=== PATIENT | male | born 1995 | race Caucasian/White ===

== ENCOUNTER 2016-12-21 14:29 | Inpatient (IN) | payer OTHER ==
[~2016-12-21] VITALS: Ht 188 cm; Wt 102.6 kg
[~2016-12-21 14:29] MED LIST: LORA.5 PO; MECL25 PO
[2016-12-21 14:33] VITALS: BP 158/80; PULSE 74; RESP 16; TEMP 98.5; O2SAT 100
[2016-12-21] MEDS ORDERED: SODIUM CHLORIDE 0.9% FLUSH 5 ML FLUSH IVF PRN (15:15)
[2016-12-21 15:24] VITALS: O2SAT 100
--- NOTE | 2016-12-21 15:34 | PD ---
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 Patient had similar symptoms when he was diagnosed on my had abnormal MRI and lumbar puncture and ruling out multiple sclerosis in January 2016. Patient has had intermittent spells of similar recurrent near syncopal episodes over the last year but has increased in frequency over the last 3-7 days. He describes these as a "drain" of energy throughout his body, mower frequent when he is standing and improves with rest that he has never had any episodes of true orthostatic vital signs. He does not have any associated chest pain shortness of breath or palpitations but does feel somewhat numb and tingly during these spells but not in between them. Patient is never completely unconscious and he is alert throughout these spells. No history of urinary or fecal incontinence associated with this. Patient has not had neurology follow-up in the last year due to lack of insurance. PFSH Past Medical History Hx Anticoagulant Therapy: No Anxiety: Yes (history) Depression: No Cancer: No Cardiovascular Problems: Yes (fast heart rate before feeling like passing out) Chemotherapy: No Diabetes: No Diminished Hearing: No Endocrine: No Genitourinary: No Immune Disorder: No Medical other: Yes (PKU) Musculoskeletal: No Neurologic: No Psychiatric: Yes Reproductive: No Respiratory: No Radiation Therapy: No Tetanus Vaccination: > 5 Years Influenza Vaccination: No Past Surgical History Other Surgery: No Social History Alcohol Use: Yes (seldom -mix drinks) Tobacco Use: No Substance Use: No Allergies-Medications (Allergen,Severity, Reaction): Coded Allergies: No Known Allergies (Verified , 12/21/16) Reported Meds & Prescriptions Reported Meds & Active Scripts Active No Active Prescriptions or Reported Medications Review of Systems Except as stated in HPI: all other systems reviewed are Neg Physical Exam Narrative GENERAL: Well-appearing male in no acute distress SKIN: Warm and dry. HEAD: Normocephalic. EYES: Pupils equal and round. No scleral icterus. No injection or drainage. ENT: No nasal bleeding or discharge. Mucous membranes pink and moist. NECK: Supple CARDIOVASCULAR: Regular rate and rhythm. No murmur appreciated. RESPIRATORY: No accessory muscle use. Clear to auscultation. Breath sounds equal bilaterally. GASTROINTESTINAL: Abdomen soft, non-tender, nondistended. MUSCULOSKELETAL: No obvious deformities. No edema. NEUROLOGICAL: Awake and alert. No obvious cranial nerve deficits. Motor grossly within normal limits. Normal speech. PSYCHIATRIC: Appropriate mood and affect; insight and judgment normal. Data Data Last Documented VS Vital Signs Date Time Temp Pulse Resp B/P Pulse Ox O2 Delivery O2 Flow Rate FiO2 12/21/16 15:24 100 Room Air 12/21/16 14:46 73 12/21/16 14:33 98.5 16 158/80 Orders Basic Metabolic Panel (Bmp) (12/21/16 15:15) Complete Blood Count With Diff (12/21/16 15:15) Iv Access Insert/Monitor (12/21/16 15:15) Ecg Monitoring (12/21/16 15:15) Oximetry (12/21/16 15:15) Sodium Chloride 0.9% Flush (Ns Flush) (12/21/16 15:15) Consult Neurology (12/21/16 ) Orthostatic Vital Signs (12/21/16 15:15) Mri Brain W&W/O Contrast (12/21/16 ) Methylprednisolone So Succ Inj (Solumedr (12/21/16 16:00) MDM Medical Decision Making Medical Screen Exam Complete: Yes Emergency Medical Condition: Yes Medical Record Reviewed: Yes Differential Diagnosis 21-year-old male with history of acute disseminated encephalomyelitis here with recurrent near syncopal episodes. Differential includes acute disseminated encephalomyelitis exacerbation, orthostasis, near syncope, electrolyte abnormality, symptomatic anemia. Narrative Course I spoke with Dr. Reza of neurology who agrees the patient may benefit from admission for high-dose steroids, repeat MRI. Recommends MRI with and without contrast, this was ordered. Also recommend Solu-Medrol 250 every 6 hours. This too was ordered. Basic labs were obtained and patient will be admitted, Dr. Garcia accepts admission. Diagnosis Primary Impression: ADEM (acute disseminated encephalomyelitis) Admitting Information Admitting Physician Requests: Admit Scripts No Active Prescriptions or Reported Meds Susan Soto MD Dec 21, 2016 15:34
[2016-12-21 15:46] VITALS: BP_SYST 140; BP_SYST 145; BP_SYST 164; BP_DIAS 66; BP_DIAS 78; BP_DIAS 86; RESP 14; RESP 17
[2016-12-21 15:49] LABS: AUTOMATED NEUTROPHIL # 6.7 TH/MM3 (1.8-7.7); BASOPHIL # 0.1 TH/MM3 (0-0.2); BASOPHIL % 0.8 % (0.0-2.0); EOSINOPHIL # 0.2 TH/MM3 (0-0.4); EOSINOPHIL % 2.2 % (0.0-4.0); HEMO FLAGS DIFF FINAL; LYMPH % 18.6 % (9.0-44.0); LYMPHOCYTE # 1.7 TH/MM3 (1.0-4.8); MEAN CELL VOLUME 90.5 FL (80.0-100.0); MEAN CORPUSCULAR HEMOGLOBIN 31.4 PG (27.0-34.0); MEAN CORPUSCULAR HGB CONC 34.7 % (32.0-36.0); MONO % 4.6 % (0.0-8.0); NEUT % 73.8 % (16.0-70.0); PLATELET COUNT 255 TH/MM3 (150-450); RED BLOOD COUNT 4.75 MIL/MM3 (4.50-5.90); RED CELL DISTRIBUTION WIDTH 11.9 % (11.6-17.2); WHITE BLOOD COUNT 9.1 TH/MM3 (4.0-11.0)
[2016-12-21] MEDS: methylPREDNISolone SOD SUCC 125 MG/2 ML VIAL IVP SCH ×2 (15:56→22:14)
[2016-12-21 15:57] LABS: POTASSIUM 3.6 MEQ/L (3.5-5.1)
[2016-12-21 16:00] LABS: BICARBONATE 26.7 MEQ/L (21.0-32.0)
[2016-12-21] MEDS: SODIUM CHLOR 0.9% 1000 ML INJ 1,000 ML IV SCH (16:21)
[2016-12-21] MEDS ORDERED: ACETAMINOPHEN 325 MG TAB PO PRN (16:30)
[2016-12-21] MEDS ORDERED: ONDANSETRON HCL 4 MG/2 ML VIAL IVP PRN (16:30)
[2016-12-21] MEDS ORDERED: NALOXONE HCL 0.4 MG/ML AMP IV PRN (16:30)
[2016-12-21 17:04] VITALS: BP 150/80; PULSE 77; RESP 21; TEMP 98; O2SAT 98
[2016-12-21] MEDS ORDERED: GADODIAMIDE PF 287 MG/ML 20 ML VIAL (for RAD MRI) IV ONE (17:53)
--- NOTE | 2016-12-21 18:25 | RADHPO ---
EXAM DATE/TIME: 12/21/2016 17:52 [facility] COMPARISON: MRI BRAIN W & W/O CONTRAST, January 25, 2016, 10:15. INDICATIONS : Encephalitis. Dizziness, weakness, near syncope. CONTRAST: 20 cc Omniscan (gadodiamide) IV MEDICAL HISTORY : Acute demyelinating emcephalomyelitis. SURGICAL HISTORY : None. ENCOUNTER: Initial ACUITY: 1 day PAIN SCORE: 0/10 LOCATION: cranial TECHNIQUE: Multiplanar, multisequence MRI of the brain was performed both prior to and following the administrat ion of paramagnetic contrast. FINDINGS: Comparison is January 2016. Again seen are T2 prolongation predominantly in the periventricular white m atter tracks diffusely and symmetrically. They do demonstrate some restriction in diffusion capacity. There is no associated hemorrhage, mass effect or shift in surface. No significant change since prio r study. There is involvement of the corpus callosum. CONCLUSION: 1. Stable bilateral periventricular white matter disease as above compared with January 2016. Different ial diagnosis previously given includes acute disseminated encephalomyelitis, hypoxic insult and othe r demyelinating processes. There is no abnormal enhancement post contrast. Earl Thompson MD on December 21, 2016 at 18:19 Board Certified Radiologist. This report was verified electronically.
[2016-12-21 20:00] VITALS: BP 142/73; PULSE 80; RESP 18; TEMP 97.9; O2SAT 98
[2016-12-21 20:09] VITALS: PULSE 86
[2016-12-21] MEDS: SODIUM CHLORIDE 0.9% FLUSH 5 ML FLUSH FLUSH SCH (21:00)
[2016-12-21] MEDS: ALPRAZolam 0.5 MG TAB PO PRN (22:15)
[2016-12-22] VITALS: BP 141/73; PULSE 65; RESP 18; TEMP 96.1; O2SAT 98
[2016-12-22] MEDS: SODIUM CHLOR 0.9% 1000 ML INJ 1,000 ML IV SCH ×3 (02:21→21:38)
[2016-12-22] MEDS: ALPRAZolam 0.5 MG TAB PO PRN ×4 (04:17→21:39)
[2016-12-22] MEDS: methylPREDNISolone SOD SUCC 125 MG/2 ML VIAL IVP SCH ×4 (04:17→21:40)
[2016-12-22 04:18] VITALS: BP 129/69; PULSE 65; RESP 18; TEMP 96.2; O2SAT 98
[2016-12-22 08:00] VITALS: BP 113/81; PULSE 72; PULSE 93; RESP 21; TEMP 97.7; O2SAT 99
--- NOTE | 2016-12-22 08:53 | MB ---
cc: ASHLYN ARTIS DATE OF CONSULTATION: 12/22/2016 REASON FOR CONSULTATION: ADDENDUM In addition, I would like to obtain an MRI of the cervical and thoracic spine to see if there is any evidence for any other demyelinating lesions in the cord. MD THIEN Addison/JACINTA /8:42 AM /8:52 AM
[2016-12-22] MEDS: SODIUM CHLORIDE 0.9% FLUSH 5 ML FLUSH FLUSH SCH ×2 (09:00→20:36)
--- NOTE | 2016-12-22 09:05 | MB ---
cc: ASHLYN ARTIS M.D. DATE OF CONSULTATION: 12/22/2016 REASON FOR CONSULTATION: Possible ADEM. HISTORY OF PRESENT ILLNESS Mr. Lisa is a 21-year-old white man who was in his usual health until about a year ago he started having episodes where he would feel lightheaded as well as vertiginous and dizzy with generalized weakness. He presented to the hospital and was found to have extensive white matter lesions on FLAIR an T2 images, mainly posteriorly on the MRI without contrast enhancement. At that time he also had lumbar puncture done and this is reviewed and it showed 1 WBC, 40% lymphs, 60% monos, 1 RBC, glucose 102, protein 55.6, myelin basic protein was negative. Cryptococcal antigen negative, VDRL nonreactive, angiotensin converting enzyme negative. He was treated with IV steroids with improvement, according to the record. Since then he has been having intermittent episodes about once a month where he feels unsteadiness of gait, generalized weakness. He has had double vision as well, coming and going. He feels overall that the symptoms have been less intense and lasting shorter periods of time until currently when he now reports an increased episode where he feels almost like he will pass out. He feels vertigo, ataxic with his gait and weakness for several days. Therefore, he presented to the emergency room. IV Solu-Medrol has been started. So far he has not noticed any significant improvement but he is early in the course. PAST MEDICAL HISTORY Otherwise unremarkable. MEDICATIONS Medications are: 1. Xanax p.r.n. for anxiety. 2. Zofran p.r.n. NEUROLOGIC EXAMINATION VITAL SIGNS: Blood pressure 113/81, pulse 72, respirations 21, temperature 97 degrees. Higher cortical functions are normal. Cranial nerves: The pupils are equal, reactive. The extraocular movements are normal. I do not see an DANIELA. There is no nystagmus. On motor examination he demonstrates 5/5 strength of all groups in both upper and lower extremities. There is no drift. Fine motor skills within normal limits. Reflexes are hyperreflexic in both upper and lower extremities. He has no Babinski sign present. There is no clonus. IMAGING STUDIES MRI of the brain shows periventricular white matter hyperintensity on FLAIR an T2 images, mainly posteriorly in the posterior parietal occipital area. This is unchanged from the previous study of January. There is no abnormal contrast enhancement. LABORATORY DATA The white count is 9100, hematocrit 43%, hemoglobin 14.9, platelet count 255,000. Sodium is 142, potassium 3.6, chloride 107, CO2 26.7, the BUN is 8, creatinine 0.82, GFR is 117, glucose 96. IMPRESSION It is possible that this could represent multiple sclerosis given the intermittent nature of his episodes with relapses in remission. ADEM would be in the differential but certainly his report of relapses would be more suggestive of MS. The normal CSF analysis last time does not rule out MS. RECOMMENDATIONS I would like to continue IV Solu-Medrol 250 mg q.6 hours for probably 3-5 days depending on his response. As an outpatient further evaluation could be obtained using visual and brainstem monitoring of potentials. I discussed repeating a lumbar puncture with the patient and he states he would rather hold off on this for the present time. In the future if there is still a possibility of MS we may consider immunomodulators such as, Gilenya, Aubagio or Tecfidera to see if this may modify his course. Thank you for asking me to see this pleasant patient. For completeness I would also like to get a sed rate, ALCIRA and Lyme PCR. MD THIEN Addison/NATHANAEL /8:38 AM /8:50 AM
--- NOTE | 2016-12-22 10:23 | MH ---
cc: NICOLAS ROSE MD DATE OF ADMISSION: 12/21/2016 CHIEF COMPLAINT Dizziness. HISTORY OF PRESENT ILLNESS This is a 21-year-old male with past medical-surgical history significant for acute disseminated encephalomyelitis diagnosed in January of 2016, history of anxiety and history of PKU, came to the ER at [facility] complaining of dizziness. He had the complaint of three recurrent episodes in January of 2016 and he was diagnosed with abnormal MRI and lumbar puncture and ruling out multiple sclerosis in January of 2016. The patient had intermittent spell of similar recurrent near syncopal episode over the last year but has increased in frequency over the last 3-7 days. He described these as a drain of energy throughout his body, when it gets worse with standing up and improved with rest. He never had any episode of ___ orthostatic vital signs, does not have any associated chest pain, shortness of breath, palpitation, but does feel somewhat numb and tingling during these spells but is not between them. The patient had never been completely unconscious, he is awake, alert, oriented x4 during the spell. No history of for urinary, fecal incontinence. He is not following a neurologist for the last 1 year because of lack of insurance and other than that nothing significant. PAST MEDICAL HISTORY AND PAST SURGICAL HISTORY As dictated above. SOCIAL HISTORY He seldom drinks alcohol. Denies any smoking or drug abuse. Lives at home. 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 ALLERGIES NO KNOWN DRUG ALLERGIES. MEDICATIONS None. REVIEW OF SYSTEMS Mild dizziness. All other review of systems are negative. PHYSICAL EXAMINATION GENERAL: A 21-year-old male sitting on the bed, not in acute distress. VITAL SIGNS: Temperature 97.7, heart rate 72, respiration 21, blood pressure 113/81, O2 saturation 99% on room air. HEENT: Normocephalic, atraumatic. EOMI. PERRL. Oral mucosa moist. NECK: Neck is supple. No visible thyromegaly or neck mass. Trachea central. CVS: Regular rate and rhythm. RESPIRATIONS: Clear to auscultation bilaterally. ABDOMEN: Soft, nontender. Bowel sounds audible. EXTREMITIES: No cyanosis or clubbing. Full range of motion of all extremities. NEUROLOGIC EXAMINATION: Higher cortical functions were intact. Cranial nerves are intact. Pupils equally reactive. Extraocular movements intact. No nystagmus. Motor system is normal. Fine motor skills are normal. Reflexes are hyperreflexic in both upper and lower extremities. No Babinski present. No clonus. PSYCHE: Mood and affect is normal. The patient is cooperative. SKIN: Warm and dry. LABORATORY DATA Includes CBC is totally unremarkable except for neut 73.8. BMP totally unremarkable. IMAGING STUDIES MRI of the brain was done and shows stable bilateral periventricular white matter disease as above in January 2016. Differential diagnosis previously given includes acute disseminated encephalomyelitis, hypoxic insult and other demyelinating process. No abnormal enhancement post contrast. ASSESSMENT/PLAN 1. 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 This could represent multiple sclerosis given the intermittent nature of the episode relapsing in remission, abnormal CSF analysis last time does not rule out MS. The patient was started on Solu-Medrol IV 250 mg q.6 hours for 3-5 days depending on response. Neurology has seen the patient, per neurology needs further outpatient evaluation, could be obtained using visual and brainstem monitoring of potentials. The patient refused lumbar puncture, neurology wanted to do that. Neurology thinks there is still a possibility of MS and they may consider immunomodulators. Checking sed rate, ALCIRA and Lyme PCR. 2. Anxiety. Continue home medication. 3. DVT prophylaxis with SCDs. 4. GI prophylaxis with Protonix 40 mg p.o. daily. 5. We are going to manage the patient on a daily basis and make recommendation on daily basis. Nicolas Rose MD EA/NATHANAEL /9:23 AM /9:45 AM
[2016-12-22 12:00] VITALS: BP 125/85; PULSE 79; RESP 18; TEMP 97.8; O2SAT 98
[2016-12-22] MEDS ORDERED: GADODIAMIDE PF 287 MG/ML 20 ML VIAL (for RAD MRI) IV ONE (15:37)
[2016-12-22 16:00] VITALS: BP 115/82; PULSE 80; RESP 19; TEMP 98; O2SAT 98
--- NOTE | 2016-12-22 16:26 | RADHPO ---
EXAM DATE/TIME: 12/22/2016 15:34 [facility] COMPARISON: No previous studies available for comparison. INDICATIONS : Mulitple sclerosis. CONTRAST: 20 cc Omniscan (gadodiamide) IV MEDICAL HISTORY : Acute demyelinating encephalomyelitis. SURGICAL HISTORY : None. ENCOUNTER: Initial ACUITY: 1 day PAIN SCORE: 0/10 LOCATION: TECHNIQUE: Multiplanar multisequence MRI of the thoracic spine was performed. FINDINGS: VERTEBRA: Normal vertebral body height. Homogeneous marrow signal. ALIGNMENT: Normal. CORD: Normal position and configuration. POST CONTRAST: No abnormal areas of contrast enhancement seen. T1-T2: Normal. T2-T3: The thecal sac has a normal diameter. No evidence of disc bulge or protrusion. T3-T4: The thecal sac has a normal diameter. No evidence of disc bulge or protrusion. T4-T5: The thecal sac has a normal diameter. No evidence of disc bulge or protrusion. T5-T6: The thecal sac has a normal diameter. No evidence of disc bulge or protrusion. T6-T7: The thecal sac has a normal diameter. No evidence of disc bulge or protrusion. T7-T8: There is a small right paracentral disc protrusion resulting in encroachment on the right lateral rec ess. T8-T9: There is a small left paracentral disc protrusion encroaching on the left lateral recess. T9-T10: The thecal sac has a normal diameter. No evidence of disc bulge or protrusion. T10-T11: The thecal sac has a normal diameter. No evidence of disc bulge or protrusion. T11-T12: The thecal sac has a normal diameter. No evidence of disc bulge or protrusion. T12-L1: The thecal sac has a normal diameter. No evidence of disc bulge or protrusion. CONCLUSION: 1. No focal cord signal abnormalities. No acute fracture or spondylolisthesis. No significant central canal stenosis. No abnormal enhancement post contrast. 2. Small right paracentral disc protrusion at T7-8 and a left paracentral disc protrusion at T8-9 res ulting in minimal encroachment on the lateral recesses. Earl Thompson MD on December 22, 2016 at 16:19 Board Certified Radiologist. This report was verified electronically.
--- NOTE | 2016-12-22 16:28 | RADHPO ---
EXAM DATE/TIME: 12/22/2016 15:34 [facility] COMPARISON: No previous studies available for comparison. INDICATIONS : Mulitple sclerosis. CONTRAST: 20 cc Omniscan (gadodiamide) IV MEDICAL HISTORY : Acute demyelenating emcephalomyelitis. SURGICAL HISTORY : None. ENCOUNTER: Initial ACUITY: 1 day PAIN SCORE: 0/10 LOCATION: neck TECHNIQUE: Multiplanar, multisequence MRI examination of the cervical spine was performed. FINDINGS: VERTEBRAE: Normal vertebral body height. Homogeneous marrow signal. ALIGNMENT: No evidence of subluxation. CORD: Normal configuration and signal. POST FOSSA: The cerebellar tonsils are normal in position. POST-CONTRAST: No abnormal areas of enhancement are seen. C2-C3: The thecal sac has a normal configuration. There is no evidence of disc herniation or spinal canal stenosis. The neural foramina are patent bilaterally. C3-C4: The thecal sac has a normal configuration. There is no evidence of disc herniation or spinal canal s tenosis. The neural foramina are patent bilaterally. C4-C5: The thecal sac has a normal configuration. There is no evidence of disc herniation or spinal canal s tenosis. The neural foramina are patent bilaterally. C5-C6: The thecal sac has a normal configuration. There is no evidence of disc herniation or spinal canal s tenosis. The neural foramina are patent bilaterally. C6-C7: Broad-based disc bulge present at this level without significant canal or foraminal stenosis. C7-T1: The thecal sac has a normal configuration. There is no evidence of disc herniation or spinal canal s tenosis. The neural foramina are patent bilaterally. CONCLUSION: 1. At C6-7 there is a mild posterior disc bulge without significant canal or foraminal stenosis. Exam otherwise unremarkable. No focal cord signal abnormalities. No abnormal enhancement post contrast. Earl Thompson MD on December 22, 2016 at 16:24 Board Certified Radiologist. This report was verified electronically.
[2016-12-22 20:00] VITALS: BP 135/72; PULSE 95; PULSE 98; RESP 20; TEMP 98.1; O2SAT 99
[2016-12-22] MEDS: SODIUM CHLORIDE 0.9% FLUSH 5 ML FLUSH FLUSH PRN (21:40)
[2016-12-23] VITALS: BP 134/63; PULSE 84; RESP 20; TEMP 98.1; O2SAT 98
[2016-12-23 04:00] VITALS: BP 126/63; PULSE 76; RESP 20; TEMP 97.7; O2SAT 98
[2016-12-23] MEDS: methylPREDNISolone SOD SUCC 125 MG/2 ML VIAL IVP SCH ×4 (04:03→22:27)
[2016-12-23] MEDS: SODIUM CHLORIDE 0.9% FLUSH 5 ML FLUSH FLUSH PRN (04:03)
[2016-12-23] MEDS: ALPRAZolam 0.5 MG TAB PO PRN ×4 (04:03→22:30)
[2016-12-23 06:42] LABS: AUTOMATED NEUTROPHIL # 24.9 TH/MM3 (1.8-7.7); BASOPHIL # 0.5 TH/MM3 (0-0.2); BASOPHIL % 1.7 % (0.0-2.0); HEMATOCRIT 42.3 % (39.0-51.0); LYMPH % 3.3 % (9.0-44.0); LYMPHOCYTE # 0.9 TH/MM3 (1.0-4.8); MEAN CORPUSCULAR HEMOGLOBIN 31.5 PG (27.0-34.0); MEAN CORPUSCULAR HGB CONC 34.6 % (32.0-36.0); MONO % 1.7 % (0.0-8.0); NEUT % 93.3 % (16.0-70.0); PLATELET COUNT 295 TH/MM3 (150-450); RED BLOOD COUNT 4.64 MIL/MM3 (4.50-5.90); WHITE BLOOD COUNT 26.8 TH/MM3 (4.0-11.0)
[2016-12-23 06:47] LABS: HEMO FLAGS AUTO DIFF
[2016-12-23 06:48] LABS: CHLORIDE 109 MEQ/L (98-107); SODIUM (NA) 144 MEQ/L (136-145)
[2016-12-23 06:56] LABS: ANION GAP 12 MEQ/L (5-15); BICARBONATE 23.1 MEQ/L (21.0-32.0); BLOOD UREA NITROGEN 15 MG/DL (7-18)
[2016-12-23 06:58] LABS: ALT (GPT) 17 U/L (12-78)
[2016-12-23 06:59] LABS: AST (GOT) 6 U/L (15-37); GLOMERULAR FILTRATION RATE 123 ML/MIN (>89)
[2016-12-23 07:00] LABS: TOTAL BILIRUBIN ADULT 0.3 MG/DL (0.2-1.0)
[2016-12-23 07:01] LABS: ALKALINE PHOSPHATASE 66 U/L (45-117)
[2016-12-23 07:21] LABS: BANDS 6 % (0-6); NEUTROPHIL # MANUAL DIFF 25.5 TH/MM3 (1.8-7.7); POLYS (SEG NEUTROPHILS) 89 % (16-70); WBC DIFF SAMPLE 100
[2016-12-23 07:22] LABS: PLATELET ESTIMATE SMEAR NORMAL (NORMAL); PLATELET MORPHOLOGY NORMAL (NORMAL); SCAN/DIFF FINAL DIFF MANUAL
[2016-12-23 08:00] VITALS: BP 110/53; PULSE 89; RESP 16; TEMP 98.3; O2SAT 97
[2016-12-23] MEDS: SODIUM CHLOR 0.9% 1000 ML INJ 1,000 ML IV SCH ×2 (08:21→18:21)
--- NOTE | 2016-12-23 08:36 | HHI.PR ---
Subjective History of Present Illness Patient deny any complaints no acute issue d/w RN Teresa at bed side. High WBC Count secondary to steroids. Review of Systems Constitutional Constitutional: Fatigue Vitals/Results Intake & Output 12/22/16 12/22/16 12/23/16 15:00 23:00 07:00 Intake Total 800 ml 120 ml Balance 800 ml 120 ml Intake Oral 800 ml 120 ml # Voids 1 0 # Bowel Movements 0 0 Vital Signs Vital Signs Date Time Temp Pulse Resp B/P Pulse Ox O2 Delivery O2 Flow Rate FiO2 12/23/16 04:00 97.7 76 20 126/63 98 12/23/16 00:00 98.1 84 20 134/63 98 12/22/16 20:00 98 12/22/16 20:00 98.1 95 20 135/72 99 12/22/16 16:00 98.0 80 19 115/82 98 12/22/16 12:00 97.8 79 18 125/85 98 CBC/BMP: 12/23/16 0615 12/23/16 0615 Lab Results Laboratory Tests Test 12/22/16 12/23/16 09:45 06:15 Erythrocyte Sedimentation Rate 2 mm/hr Vitamin B12 Level 700 PG/ML White Blood Count 26.8 TH/MM3 Red Blood Count 4.64 MIL/MM3 Hemoglobin 14.6 GM/DL Hematocrit 42.3 % Mean Corpuscular Volume 91.0 FL Mean Corpuscular Hemoglobin 31.5 PG Mean Corpuscular Hemoglobin 34.6 % Concent Red Cell Distribution Width 12.0 % Platelet Count 295 TH/MM3 Mean Platelet Volume 8.7 FL Neutrophils (%) (Auto) 93.3 % Lymphocytes (%) (Auto) 3.3 % Monocytes (%) (Auto) 1.7 % Eosinophils (%) (Auto) 0.0 % Basophils (%) (Auto) 1.7 % Neutrophils # (Auto) 24.9 TH/MM3 Lymphocytes # (Auto) 0.9 TH/MM3 Monocytes # (Auto) 0.5 TH/MM3 Eosinophils # (Auto) 0.0 TH/MM3 Basophils # (Auto) 0.5 TH/MM3 CBC Comment AUTO DIFF Differential Total Cells 100 Counted Neutrophils % (Manual) 89 % Band Neutrophils % 6 % Lymphocytes % 4 % Monocytes % 1 % Neutrophils # (Manual) 25.5 TH/MM3 Differential Comment FINAL DIFF MANUAL Platelet Estimate NORMAL Platelet Morphology Comment NORMAL Red Cell Morphology Comment NORMAL Sodium Level 144 MEQ/L Potassium Level 4.0 MEQ/L Chloride Level 109 MEQ/L Carbon Dioxide Level 23.1 MEQ/L Anion Gap 12 MEQ/L Blood Urea Nitrogen 15 MG/DL Creatinine 0.79 MG/DL Estimat Glomerular Filtration 123 ML/MIN Rate Random Glucose 156 MG/DL Calcium Level 9.1 MG/DL Total Bilirubin 0.3 MG/DL Aspartate Amino Transf 6 U/L (AST/SGOT) Alanine Aminotransferase 17 U/L (ALT/SGPT) Alkaline Phosphatase 66 U/L Total Protein 6.7 GM/DL Albumin 3.9 GM/DL Physical Exam General General Appearance: No Acute Distress, Comfortable Eyes Eye Exam: Pupils Equal, Pupils Reactive, Sclera White, Extraocular Movement Intact Throat Throat Exam: Oral Mucosa [place] & Moist, Oral Pharynx Normal Neck Neck Exam: Neck Supple, Trachea Midline Pulmonary Resp Exam: Clear Bilaterally, Breath Sounds Equal, No Distress Cardiology CV Exam: Regular, Normal Sinus Rhythm Gastrointestinal/Abdomen GI Exam: Soft, Non-Tender, Bowel Sounds Present Musculoskeletal MS Exam: Joints Intact, Normal Tone Integumentary Skin Exam: Clear, Warm, Dry, Intact Extremeties Extremities Exam: No Edema Neurologic Neuro Exam: Alert, Awake, Oriented, Speech Clear, No Focal Deficits Psychiatric Psych Exam: Appropriate Responses PUD Prophylasis PUD Prophylaxis: Protonix Assessment/Plan Assessment/Plan ASSESSMENT/PLAN 1. 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 This could represent multiple sclerosis given the intermittent nature of the episode relapsing in remission, abnormal CSF analysis last time does not rule out MS. The patient was started on Solu-Medrol IV 250 mg q.6 hours for 3-5 days depending on response. Neurology has seen the patient, per neurology needs further outpatient evaluation, could be obtained using visual and brainstem monitoring of potentials. The patient refused lumbar puncture, neurology wanted to do that. Neurology thinks there is still a possibility of MS and they may consider immunomodulators. Checked sed rate, and Lyme PCR...ALCIRA negative MRI of Brain and MRI of Cervical and Thoracic spine..nothing acute. 2. Anxiety. Continue home medication. 3. DVT prophylaxis with SCDs. 4. GI prophylaxis with Protonix 40 mg p.o. daily. 5. High WBC Count secondary to steroids. We are going to manage the patient on a daily basis and make recommendation on daily basis. Check CBC with diff CMP in AM. Discussed Condition with: Patient Damian Jay MD Dec 23, 2016 08:36
[2016-12-23] MEDS: SODIUM CHLORIDE 0.9% FLUSH 5 ML FLUSH FLUSH SCH ×2 (10:03→22:27)
[2016-12-23 12:00] VITALS: BP 135/69; PULSE 89; RESP 16; TEMP 98.3; O2SAT 98
[2016-12-23 15:27] VITALS: BP 121/65; PULSE 97; RESP 16; TEMP 98.3; O2SAT 98
--- NOTE | 2016-12-23 19:57 | HHI.PR ---
Review/Management Diagnosis ADEM vs MS Plan continue iv steroids 2 more days--through Friday evening Diagnosis/Plan: Subjective Subjective Comments No acute events reported No headache So far notices no improvement in sx Active Medications Current Medications Medications (Trade) Dose Ordered Sig/Nanci Route Start Time Stop Time Status Last Admin Methylprednisolone Sodium Succinate 250 mg 250 mg Q6H IVP 12/21/16 16:00 12/23/16 17:37 (NS 1000 ml Inj) 1,000 ml @ 100 mls/hr Q10H IV 12/21/16 16:21 (NS Flush) 2 ml UNSCH PRN FLUSH 12/21/16 16:30 12/23/16 04:03 (NS Flush) 2 ml BID FLUSH 12/21/16 21:00 12/23/16 10:03 (Tylenol) 650 mg Q4H PRN PO 12/21/16 16:30 (Zofran Inj) 4 mg Q6H PRN IVP 12/21/16 16:30 (Narcan Inj) 0.4 mg UNSCH PRN IV 12/21/16 16:30 (Xanax) 0.5 mg Q6H PRN PO 12/21/16 19:00 12/23/16 17:37 Allergies Allergies Coded Allergies No Known Allergies (Verified12/21/16) Review of Systems All other ROS: ROS reviewed as documented in chart Exam I&O / VS 12/22/16 12/22/16 12/23/16 15:00 23:00 07:00 Intake Total 800 ml 120 ml Balance 800 ml 120 ml Intake Oral 800 ml 120 ml # Voids 1 0 # Bowel Movements 0 0 Vital Signs Date Time Temp Pulse Resp B/P Pulse Ox O2 Delivery O2 Flow Rate FiO2 12/23/16 15:27 98.3 97 16 121/65 98 12/23/16 12:00 98.3 89 16 135/69 98 12/23/16 08:00 98.3 89 16 110/53 97 12/23/16 04:00 97.7 76 20 126/63 98 12/23/16 00:00 98.1 84 20 134/63 98 12/22/16 20:00 98 12/22/16 20:00 98.1 95 20 135/72 99 General: Alert and Oriented, No acute distress Eye: EOMI Respiratory: Non-labored respirations Cardiology: Normal rate Musculoskeletal: ROM Neurologic: Alert, Oriented, Normal sensory, Normal motor, No focal defects, CN II-XII intact, Normal DTR's Psychiatric: Cooperative, Appropriate mood & affect, Normal judgement Exam Comments alert, oriented, speech normal CN normal Motor normal strength gait normal Objective Radiology Results MRI cervical and thoracic spine--no intramedullary areas of demyelination Micro and Labs Laboratory Tests Test 12/23/16 06:15 White Blood Count 26.8 Red Blood Count 4.64 Hemoglobin 14.6 Hematocrit 42.3 Mean Corpuscular Volume 91.0 Mean Corpuscular Hemoglobin 31.5 Mean Corpuscular Hemoglobin 34.6 Concent Red Cell Distribution Width 12.0 Platelet Count 295 Mean Platelet Volume 8.7 Neutrophils (%) (Auto) 93.3 Lymphocytes (%) (Auto) 3.3 Monocytes (%) (Auto) 1.7 Eosinophils (%) (Auto) 0.0 Basophils (%) (Auto) 1.7 Neutrophils # (Auto) 24.9 Lymphocytes # (Auto) 0.9 Monocytes # (Auto) 0.5 Eosinophils # (Auto) 0.0 Basophils # (Auto) 0.5 CBC Comment AUTO DIFF Differential Total Cells 100 Counted Neutrophils % (Manual) 89 Band Neutrophils % 6 Lymphocytes % 4 Monocytes % 1 Neutrophils # (Manual) 25.5 Differential Comment FINAL DIFF MANUAL Platelet Estimate NORMAL Platelet Morphology Comment NORMAL Red Cell Morphology Comment NORMAL Sodium Level 144 Potassium Level 4.0 Chloride Level 109 Carbon Dioxide Level 23.1 Anion Gap 12 Blood Urea Nitrogen 15 Creatinine 0.79 Estimat Glomerular Filtration 123 Rate Random Glucose 156 Calcium Level 9.1 Total Bilirubin 0.3 Aspartate Amino Transf 6 (AST/SGOT) Alanine Aminotransferase 17 (ALT/SGPT) Alkaline Phosphatase 66 Total Protein 6.7 Albumin 3.9 Devin Reza PhD Dec 23, 2016 19:57
[2016-12-23 20:00] VITALS: BP 129/74; PULSE 106; PULSE 72; RESP 18; TEMP 96.7; O2SAT 98
[2016-12-24] VITALS: BP 138/72; PULSE 70; RESP 18; TEMP 97.7; O2SAT 98
[2016-12-24 04:00] VITALS: BP 106/59; PULSE 67; RESP 17; TEMP 97; O2SAT 97
[2016-12-24] MEDS: ALPRAZolam 0.5 MG TAB PO PRN ×4 (04:16→22:21)
[2016-12-24] MEDS: methylPREDNISolone SOD SUCC 125 MG/2 ML VIAL IVP SCH ×4 (04:17→21:45)
[2016-12-24] MEDS: SODIUM CHLOR 0.9% 1000 ML INJ 1,000 ML IV SCH ×2 (04:17→14:16)
[2016-12-24 07:55] VITALS: BP 143/91; PULSE 85; RESP 20; TEMP 97.8; O2SAT 97
--- NOTE | 2016-12-24 08:17 | HHI.PR ---
Subjective History of Present Illness Patient deny any complaints no acute issue d/w RN Nay. High WBC Count secondary to steroids...wants some thin for haert burn started on protonix PO, Review of Systems Constitutional Constitutional: Fatigue GI/Abdomen GI/Abdominal Exam: Heartburn Vitals/Results Intake & Output 12/23/16 12/23/16 12/24/16 15:00 23:00 07:00 Intake Total 720 ml 510 ml Balance 720 ml 510 ml Intake Oral 720 ml 510 ml # Voids 3 8 # Bowel Movements 1 Vital Signs Vital Signs Date Time Temp Pulse Resp B/P Pulse Ox O2 Delivery O2 Flow Rate FiO2 12/24/16 07:55 97.8 85 20 143/91 97 12/24/16 04:00 97.0 67 17 106/59 97 12/24/16 00:00 97.7 70 18 138/72 98 12/23/16 20:00 106 12/23/16 20:00 96.7 72 18 129/74 98 12/23/16 15:27 98.3 97 16 121/65 98 12/23/16 12:00 98.3 89 16 135/69 98 CBC/BMP: 12/23/16 0615 12/23/16 0615 Physical Exam General General Appearance: No Acute Distress, Comfortable Eyes Eye Exam: Pupils Equal, Pupils Reactive, Sclera White, Extraocular Movement Intact Throat Throat Exam: Oral Mucosa [place] & Moist, Oral Pharynx Normal Neck Neck Exam: Neck Supple, Trachea Midline Pulmonary Resp Exam: Clear Bilaterally, Breath Sounds Equal, No Distress Cardiology CV Exam: Regular, Normal Sinus Rhythm Gastrointestinal/Abdomen GI Exam: Soft, Non-Tender, Bowel Sounds Present Musculoskeletal MS Exam: Joints Intact, Normal Tone Integumentary Skin Exam: Clear, Warm, Dry, Intact Extremeties Extremities Exam: No Edema Neurologic Neuro Exam: Alert, Awake, Oriented, Speech Clear, No Focal Deficits Psychiatric Psych Exam: Appropriate Responses PUD Prophylasis PUD Prophylaxis: Protonix Assessment/Plan Assessment/Plan ASSESSMENT/PLAN 1. 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 This could represent multiple sclerosis given the intermittent nature of the episode relapsing in remission, abnormal CSF analysis last time does not rule out MS. The patient was started on Solu-Medrol IV 250 mg q.6 hours for 3-5 days depending on response. Neurology has seen the patient, per neurology needs further outpatient evaluation, could be obtained using visual and brainstem monitoring of potentials. The patient refused lumbar puncture, neurology wanted to do that. Neurology thinks there is still a possibility of MS and they may consider immunomodulators. Checked sed rate, and Lyme PCR...ALCIRA negative MRI of Brain and MRI of Cervical and Thoracic spine..nothing acute. 2. Anxiety. Continue home medication. 3. DVT prophylaxis with SCDs. 4. GI prophylaxis with Protonix 40 mg p.o. daily. 5. High WBC Count secondary to steroids. We are going to manage the patient on a daily basis and make recommendation on daily basis. Check CBC with diff CMP in AM. Discussed Condition with: Patient Damian Jay MD Dec 24, 2016 08:17
[2016-12-24] MEDS: SODIUM CHLORIDE 0.9% FLUSH 5 ML FLUSH FLUSH SCH ×2 (09:56→21:45)
[2016-12-24] MEDS: PANTOPRAZOLE SOD 40 MG DELAYED RELEASE TAB PO SCH (09:56)
[2016-12-24 12:00] VITALS: BP 138/74; PULSE 72; RESP 20; TEMP 97.5; O2SAT 97
[2016-12-24 16:00] VITALS: BP 129/78; PULSE 79; RESP 20; TEMP 98.1; O2SAT 98
[2016-12-24 20:00] VITALS: BP 146/86; PULSE 80; PULSE 88; RESP 18; TEMP 97.2; O2SAT 99
[2016-12-25] VITALS: BP 142/69; PULSE 82; RESP 18; TEMP 96.8; O2SAT 98
[2016-12-25] MEDS: SODIUM CHLOR 0.9% 1000 ML INJ 1,000 ML IV SCH ×3 (00:21→19:37)
[2016-12-25 04:00] VITALS: BP 112/65; PULSE 54; RESP 18; TEMP 97.1; O2SAT 98
[2016-12-25] MEDS: ALPRAZolam 0.5 MG TAB PO PRN ×3 (04:11→16:13)
[2016-12-25] MEDS: methylPREDNISolone SOD SUCC 125 MG/2 ML VIAL IVP SCH ×3 (04:11→16:08)
[2016-12-25 06:26] LABS: AUTOMATED NEUTROPHIL # 14.4 TH/MM3 (1.8-7.7); BASOPHIL % 0.1 % (0.0-2.0); HEMATOCRIT 38.8 % (39.0-51.0); LYMPHOCYTE # 0.6 TH/MM3 (1.0-4.8); MEAN CORPUSCULAR HEMOGLOBIN 31.8 PG (27.0-34.0); MEAN CORPUSCULAR HGB CONC 35.4 % (32.0-36.0); MONO % 2.3 % (0.0-8.0); NEUT % 93.6 % (16.0-70.0); PLATELET COUNT 226 TH/MM3 (150-450); RED BLOOD COUNT 4.32 MIL/MM3 (4.50-5.90); RED CELL DISTRIBUTION WIDTH 11.6 % (11.6-17.2); WHITE BLOOD COUNT 15.4 TH/MM3 (4.0-11.0)
[2016-12-25 06:29] LABS: HEMO FLAGS DIFF FINAL
[2016-12-25 06:43] LABS: CHLORIDE 106 MEQ/L (98-107); POTASSIUM 3.6 MEQ/L (3.5-5.1); SODIUM (NA) 142 MEQ/L (136-145)
[2016-12-25 06:59] LABS: ALKALINE PHOSPHATASE 57 U/L (45-117); ALT (GPT) 17 U/L (12-78); ANION GAP 10 MEQ/L (5-15); AST (GOT) 3 U/L (15-37); BICARBONATE 26.3 MEQ/L (21.0-32.0); BLOOD UREA NITROGEN 16 MG/DL (7-18); GLOMERULAR FILTRATION RATE 126 ML/MIN (>89); TOTAL BILIRUBIN ADULT 0.5 MG/DL (0.2-1.0)
[2016-12-25 08:00] VITALS: BP 146/76; PULSE 77; RESP 16; TEMP 97.8; O2SAT 98
--- NOTE | 2016-12-25 08:19 | HHI.PR ---
Subjective History of Present Illness Patient deny any complaints no acute issue d/w RN High WBC Count secondary to steroids.. c/o hiccough started on chlorpromazine. Review of Systems Constitutional Constitutional: Fatigue GI/Abdomen GI/Abdominal Exam: Heartburn Vitals/Results Intake & Output 12/24/16 12/24/16 12/25/16 15:00 23:00 07:00 Intake Total 450 ml 360 ml Balance 450 ml 360 ml Intake Oral 450 ml 360 ml # Voids 3 13 # Bowel Movements 0 Vital Signs Vital Signs Date Time Temp Pulse Resp B/P Pulse Ox O2 Delivery O2 Flow Rate FiO2 12/25/16 04:00 97.1 54 18 112/65 98 12/25/16 00:00 96.8 82 18 142/69 98 12/24/16 20:00 97.2 88 18 146/86 99 12/24/16 20:00 80 12/24/16 16:00 98.1 79 20 129/78 98 12/24/16 12:00 97.5 72 20 138/74 97 CBC/BMP: 12/25/16 0550 12/25/16 0550 Lab Results Laboratory Tests Test 12/25/16 05:50 White Blood Count 15.4 TH/MM3 Red Blood Count 4.32 MIL/MM3 Hemoglobin 13.7 GM/DL Hematocrit 38.8 % Mean Corpuscular Volume 90.0 FL Mean Corpuscular Hemoglobin 31.8 PG Mean Corpuscular Hemoglobin 35.4 % Concent Red Cell Distribution Width 11.6 % Platelet Count 226 TH/MM3 Mean Platelet Volume 8.7 FL Neutrophils (%) (Auto) 93.6 % Lymphocytes (%) (Auto) 4.0 % Monocytes (%) (Auto) 2.3 % Eosinophils (%) (Auto) 0.0 % Basophils (%) (Auto) 0.1 % Neutrophils # (Auto) 14.4 TH/MM3 Lymphocytes # (Auto) 0.6 TH/MM3 Monocytes # (Auto) 0.4 TH/MM3 Eosinophils # (Auto) 0.0 TH/MM3 Basophils # (Auto) 0.0 TH/MM3 CBC Comment DIFF FINAL Differential Comment Sodium Level 142 MEQ/L Potassium Level 3.6 MEQ/L Chloride Level 106 MEQ/L Carbon Dioxide Level 26.3 MEQ/L Anion Gap 10 MEQ/L Blood Urea Nitrogen 16 MG/DL Creatinine 0.77 MG/DL Estimat Glomerular Filtration 126 ML/MIN Rate Random Glucose 128 MG/DL Calcium Level 8.7 MG/DL Total Bilirubin 0.5 MG/DL Aspartate Amino Transf 3 U/L (AST/SGOT) Alanine Aminotransferase 17 U/L (ALT/SGPT) Alkaline Phosphatase 57 U/L Total Protein 6.0 GM/DL Albumin 3.3 GM/DL Physical Exam General General Appearance: No Acute Distress, Comfortable Eyes Eye Exam: Pupils Equal, Pupils Reactive, Sclera White, Extraocular Movement Intact Throat Throat Exam: Oral Mucosa [place] & Moist, Oral Pharynx Normal Neck Neck Exam: Neck Supple, Trachea Midline Pulmonary Resp Exam: Clear Bilaterally, Breath Sounds Equal, No Distress Cardiology CV Exam: Regular, Normal Sinus Rhythm Gastrointestinal/Abdomen GI Exam: Soft, Non-Tender, Bowel Sounds Present Musculoskeletal MS Exam: Joints Intact, Normal Tone Integumentary Skin Exam: Clear, Warm, Dry, Intact Extremeties Extremities Exam: No Edema Neurologic Neuro Exam: Alert, Awake, Oriented, Speech Clear, No Focal Deficits Psychiatric Psych Exam: Appropriate Responses PUD Prophylasis PUD Prophylaxis: Protonix Assessment/Plan Assessment/Plan ASSESSMENT/PLAN 1. 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 This could represent multiple sclerosis given the intermittent nature of the episode relapsing in remission, abnormal CSF analysis last time does not rule out MS. The patient was started on Solu-Medrol IV 250 mg q.6 hours for 3-5 days depending on response. Neurology has seen the patient, per neurology needs further outpatient evaluation, could be obtained using visual and brainstem monitoring of potentials. The patient refused lumbar puncture, neurology wanted to do that. Neurology thinks there is still a possibility of MS and they may consider immunomodulators. Checked sed rate, and Lyme PCR...ALCIRA negative MRI of Brain and MRI of Cervical and Thoracic spine..nothing acute. 2. Anxiety. Continue home medication. 3. DVT prophylaxis with SCDs. 4. GI prophylaxis with Protonix 40 mg p.o. daily. 5. High WBC Count secondary to steroids. 6.Hiccough started on chlorpromazine. DC Plan possible tomorrow. We are going to manage the patient on a daily basis and make recommendation on daily basis. Check CBC with diff CMP in AM. Discussed Condition with: Patient Damian Jay MD Dec 25, 2016 08:19
[2016-12-25] MEDS: PANTOPRAZOLE SOD 40 MG DELAYED RELEASE TAB PO SCH (08:23)
[2016-12-25] MEDS: SODIUM CHLORIDE 0.9% FLUSH 5 ML FLUSH FLUSH SCH ×2 (08:24→20:10)
[2016-12-25] MEDS: chlorproMAZINE HCL 25 MG TAB PO PRN ×2 (10:29→17:30)
[2016-12-25 12:00] VITALS: BP 146/76; PULSE 77; RESP 18; TEMP 97.3; O2SAT 98
[2016-12-25 16:00] VITALS: BP 150/71; PULSE 88; RESP 18; TEMP 97.8; O2SAT 98
--- NOTE | 2016-12-25 19:15 | HHI.PR ---
Review/Management Diagnosis ADEM vs MS Plan stop iv steroids repeat MRI brain If MRI brain is stable ok from neuro standpoint to discharge home tomorrow and follow up with me in office in 2-3 weeks I would not recommend other therapies such as plasmapheresis, cytoxan, etc due to potential for side effects and exam with no definitive findings Diagnosis/Plan: Subjective Subjective Comments patient reports he feels his balance is worse and not improved with solumedrol Active Medications Current Medications Medications (Trade) Dose Ordered Sig/Nanci Route Start Time Stop Time Status Last Admin Methylprednisolone Sodium Succinate 250 mg 250 mg Q6H IVP 12/21/16 16:00 12/25/16 16:08 (NS 1000 ml Inj) 1,000 ml @ 100 mls/hr Q10H IV 12/21/16 16:21 (NS Flush) 2 ml UNSCH PRN FLUSH 12/21/16 16:30 12/23/16 04:03 (NS Flush) 2 ml BID FLUSH 12/21/16 21:00 12/25/16 08:24 (Tylenol) 650 mg Q4H PRN PO 12/21/16 16:30 (Zofran Inj) 4 mg Q6H PRN IVP 12/21/16 16:30 (Narcan Inj) 0.4 mg UNSCH PRN IV 12/21/16 16:30 (Xanax) 0.5 mg Q6H PRN PO 12/21/16 19:00 12/25/16 16:13 (Protonix) 40 mg DAILY PO 12/24/16 09:00 12/25/16 08:23 (Thorazine) 25 mg Q6H PRN PO 12/25/16 09:00 12/25/16 17:30 Allergies Allergies Coded Allergies No Known Allergies (Verified12/21/16) Review of Systems All other ROS: ROS reviewed as documented in chart Exam I&O / VS 12/24/16 12/24/16 12/25/16 15:00 23:00 07:00 Intake Total 450 ml 360 ml Balance 450 ml 360 ml Intake Oral 450 ml 360 ml # Voids 3 13 # Bowel Movements 0 Vital Signs Date Time Temp Pulse Resp B/P Pulse Ox O2 Delivery O2 Flow Rate FiO2 12/25/16 16:00 97.8 88 18 150/71 98 12/25/16 12:00 97.3 77 18 146/76 98 12/25/16 08:00 97.8 77 16 146/76 98 12/25/16 04:00 97.1 54 18 112/65 98 12/25/16 00:00 96.8 82 18 142/69 98 12/24/16 20:00 97.2 88 18 146/86 99 12/24/16 20:00 80 General: Alert and Oriented, No acute distress Eye: EOMI Respiratory: Non-labored respirations Cardiology: Normal rate Musculoskeletal: ROM Neurologic: Alert, Oriented, Normal sensory, Normal motor, No focal defects, CN II-XII intact, Normal DTR's Psychiatric: Cooperative, Appropriate mood & affect, Normal judgement Exam Comments alert, oriented, speech normal CN normal--no nystagmus Motor normal strength gait normal no dysmetiria Objective Micro and Labs Laboratory Tests Test 12/25/16 05:50 White Blood Count 15.4 Red Blood Count 4.32 Hemoglobin 13.7 Hematocrit 38.8 Mean Corpuscular Volume 90.0 Mean Corpuscular Hemoglobin 31.8 Mean Corpuscular Hemoglobin 35.4 Concent Red Cell Distribution Width 11.6 Platelet Count 226 Mean Platelet Volume 8.7 Neutrophils (%) (Auto) 93.6 Lymphocytes (%) (Auto) 4.0 Monocytes (%) (Auto) 2.3 Eosinophils (%) (Auto) 0.0 Basophils (%) (Auto) 0.1 Neutrophils # (Auto) 14.4 Lymphocytes # (Auto) 0.6 Monocytes # (Auto) 0.4 Eosinophils # (Auto) 0.0 Basophils # (Auto) 0.0 CBC Comment DIFF FINAL Differential Comment Sodium Level 142 Potassium Level 3.6 Chloride Level 106 Carbon Dioxide Level 26.3 Anion Gap 10 Blood Urea Nitrogen 16 Creatinine 0.77 Estimat Glomerular Filtration 126 Rate Random Glucose 128 Calcium Level 8.7 Total Bilirubin 0.5 Aspartate Amino Transf 3 (AST/SGOT) Alanine Aminotransferase 17 (ALT/SGPT) Alkaline Phosphatase 57 Total Protein 6.0 Albumin 3.3 Devin Reza PhD MD Dec 25, 2016 19:15
[2016-12-25 20:00] VITALS: BP 130/69; PULSE 72; RESP 18; TEMP 97.4; O2SAT 97
[2016-12-26] VITALS: BP 141/73; PULSE 75; RESP 18; TEMP 97.4; O2SAT 98
[2016-12-26 04:00] VITALS: BP 121/60; PULSE 76; RESP 16; TEMP 97.7; O2SAT 97
[2016-12-26] MEDS: SODIUM CHLOR 0.9% 1000 ML INJ 1,000 ML IV SCH (05:34)
[2016-12-26 06:37] LABS: AUTOMATED NEUTROPHIL # 15.7 TH/MM3 (1.8-7.7); BASOPHIL % 0.1 % (0.0-2.0); HEMATOCRIT 42.5 % (39.0-51.0); LYMPHOCYTE # 0.7 TH/MM3 (1.0-4.8); MEAN CELL VOLUME 90.3 FL (80.0-100.0); MEAN CORPUSCULAR HEMOGLOBIN 30.6 PG (27.0-34.0); MEAN CORPUSCULAR HGB CONC 33.9 % (32.0-36.0); MONO % 4.6 % (0.0-8.0); NEUT % 91.3 % (16.0-70.0); PLATELET COUNT 275 TH/MM3 (150-450); RED BLOOD COUNT 4.71 MIL/MM3 (4.50-5.90); RED CELL DISTRIBUTION WIDTH 11.9 % (11.6-17.2); WHITE BLOOD COUNT 17.2 TH/MM3 (4.0-11.0)
[2016-12-26 06:53] LABS: CHLORIDE 108 MEQ/L (98-107); POTASSIUM 3.6 MEQ/L (3.5-5.1); SODIUM (NA) 145 MEQ/L (136-145)
[2016-12-26 07:04] LABS: ALT (GPT) 23 U/L (12-78); ANION GAP 12 MEQ/L (5-15); BICARBONATE 24.8 MEQ/L (21.0-32.0)
[2016-12-26 07:14] LABS: HEMO FLAGS DIFF FINAL
[2016-12-26 07:17] LABS: ALKALINE PHOSPHATASE 77 U/L (45-117); AST (GOT) 15 U/L (15-37); BLOOD UREA NITROGEN 19 MG/DL (7-18); GLOMERULAR FILTRATION RATE 117 ML/MIN (>89); TOTAL BILIRUBIN ADULT 0.5 MG/DL (0.2-1.0)
[2016-12-26 08:00] VITALS: BP 139/80; PULSE 66; RESP 16; TEMP 97.1; O2SAT 97
--- NOTE | 2016-12-26 08:13 | HHI.PR ---
Subjective History of Present Illness Patient deny any complaints no acute issue d/w RN High WBC Count secondary to steroids.. c/o hiccough started on chlorpromazine... better OK to DC home today. Review of Systems Constitutional Constitutional: Fatigue GI/Abdomen GI/Abdominal Exam: Heartburn Vitals/Results Intake & Output 12/25/16 12/25/16 12/26/16 15:00 23:00 07:00 Intake Total 480 ml 480 ml Balance 480 ml 480 ml Intake Oral 480 ml 480 ml # Voids 3 2 # Bowel Movements 0 0 Vital Signs Vital Signs Date Time Temp Pulse Resp B/P Pulse Ox O2 Delivery O2 Flow Rate FiO2 12/26/16 04:00 97.7 76 16 121/60 97 12/26/16 00:00 97.4 75 18 141/73 98 12/25/16 20:00 97.4 72 18 130/69 97 12/25/16 16:00 97.8 88 18 150/71 98 12/25/16 12:00 97.3 77 18 146/76 98 CBC/BMP: 12/26/16 0545 12/26/16 0545 Lab Results Laboratory Tests Test 12/26/16 05:45 White Blood Count 17.2 TH/MM3 Red Blood Count 4.71 MIL/MM3 Hemoglobin 14.4 GM/DL Hematocrit 42.5 % Mean Corpuscular Volume 90.3 FL Mean Corpuscular Hemoglobin 30.6 PG Mean Corpuscular Hemoglobin 33.9 % Concent Red Cell Distribution Width 11.9 % Platelet Count 275 TH/MM3 Mean Platelet Volume 9.1 FL Neutrophils (%) (Auto) 91.3 % Lymphocytes (%) (Auto) 4.0 % Monocytes (%) (Auto) 4.6 % Eosinophils (%) (Auto) 0.0 % Basophils (%) (Auto) 0.1 % Neutrophils # (Auto) 15.7 TH/MM3 Lymphocytes # (Auto) 0.7 TH/MM3 Monocytes # (Auto) 0.8 TH/MM3 Eosinophils # (Auto) 0.0 TH/MM3 Basophils # (Auto) 0.0 TH/MM3 CBC Comment DIFF FINAL Differential Comment Sodium Level 145 MEQ/L Potassium Level 3.6 MEQ/L Chloride Level 108 MEQ/L Carbon Dioxide Level 24.8 MEQ/L Anion Gap 12 MEQ/L Blood Urea Nitrogen 19 MG/DL Creatinine 0.82 MG/DL Estimat Glomerular Filtration 117 ML/MIN Rate Random Glucose 123 MG/DL Calcium Level 8.4 MG/DL Total Bilirubin 0.5 MG/DL Aspartate Amino Transf 15 U/L (AST/SGOT) Alanine Aminotransferase 23 U/L (ALT/SGPT) Alkaline Phosphatase 77 U/L Total Protein 6.1 GM/DL Albumin 3.3 GM/DL Physical Exam General General Appearance: No Acute Distress, Comfortable Eyes Eye Exam: Pupils Equal, Pupils Reactive, Sclera White, Extraocular Movement Intact Throat Throat Exam: Oral Mucosa [place] & Moist, Oral Pharynx Normal Neck Neck Exam: Neck Supple, Trachea Midline Pulmonary Resp Exam: Clear Bilaterally, Breath Sounds Equal, No Distress Cardiology CV Exam: Regular, Normal Sinus Rhythm Gastrointestinal/Abdomen GI Exam: Soft, Non-Tender, Bowel Sounds Present Musculoskeletal MS Exam: Joints Intact, Normal Tone Integumentary Skin Exam: Clear, Warm, Dry, Intact Extremeties Extremities Exam: No Edema Neurologic Neuro Exam: Alert, Awake, Oriented, Speech Clear, No Focal Deficits Psychiatric Psych Exam: Appropriate Responses PUD Prophylasis PUD Prophylaxis: Protonix Assessment/Plan Assessment/Plan ASSESSMENT/PLAN 1. 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 This could represent multiple sclerosis given the intermittent nature of the episode relapsing in remission, abnormal CSF analysis last time does not rule out MS. The patient was started on Solu-Medrol IV 250 mg q.6 hours for 3-5 days depending on response. Neurology has seen the patient, per neurology needs further outpatient evaluation, could be obtained using visual and brainstem monitoring of potentials. The patient refused lumbar puncture, neurology wanted to do that. Neurology thinks there is still a possibility of MS and they may consider immunomodulators. Checked sed rate, and Lyme PCR...ALCIRA negative MRI of Brain and MRI of Cervical and Thoracic spine..nothing acute. 2. Anxiety. Continue home medication. 3. DVT prophylaxis with SCDs. 4. GI prophylaxis with Protonix 40 mg p.o. daily. 5. High WBC Count secondary to steroids. 6.Hiccough started on chlorpromazine. OK to DC home today f/u with pcp/ neurology 1 week. Discussed Condition with: Patient Damian Jay MD Dec 26, 2016 08:13 Damian Jay MD Dec 26, 2016 08:13
[2016-12-26] MEDS ORDERED: PANT40TA3 PO (08:15)
[2016-12-26] MEDS: PANTOPRAZOLE SOD 40 MG DELAYED RELEASE TAB PO SCH (09:00)
[2016-12-26 12:00] VITALS: BP 135/78; PULSE 70; RESP 16; TEMP 98.1; O2SAT 97
[2016-12-26] MEDS ORDERED: GADODIAMIDE PF 287 MG/ML 20 ML VIAL (for RAD MRI) IV ONE (12:50)
[2016-12-26 16:00] VITALS: BP 133/60; PULSE 70; RESP 18; TEMP 98.2; O2SAT 95
--- NOTE | 2016-12-26 16:39 | RADHPO ---
EXAM DATE/TIME: 12/26/2016 12:51 [facility] COMPARISON: MRI BRAIN W & W/O CONTRAST, December 21, 2016, 17:52. INDICATIONS : Multiple Sclerosis. Dizziness, weakness and near syncope. CONTRAST: 20 cc Omniscan (gadodiamide) IV MEDICAL HISTORY : Anxiety. SURGICAL HISTORY : None. ENCOUNTER: Initial ACUITY: 2 day PAIN SCORE: 0/10 LOCATION: Head. TECHNIQUE: Multiplanar, multisequence MRI of the brain was performed both prior to and following the administrat ion of paramagnetic contrast. FINDINGS: CEREBRUM: The ventricles are normal for age. No evidence of midline shift, mass lesion, hemorrhage or acute in farction. No extraaxial fluid collections are seen. The pituitary gland and suprasellar cistern are normal in configuration. WHITE MATTER: Stable configuration to the T2 prolongation and restricted diffusion in the periventricular and white matter tracts. No evidence of chronic blood products. POSTERIOR FOSSA: The cerebellum and brainstem are intact. The 4th ventricle is midline. The cerebellopontine angle is unremarkable. The cerebellar tonsils are normal in position. EXTRACRANIAL: The visualized portions of the orbits and paranasal sinuses are unremarkable. There is stable T2 pro longation in the optic nerves, central optic radiations and optic chiasm. POST-CONTRAST: No abnormal areas of parenchymal or dural enhancement. No evidence of blood-brain barrier breakdown. CONCLUSION: Stable appearance the white matter abnormalities periventricular and central tracts and in bilateral optic nerves when compared to 12/21/16. No acute findings. Min Francois MD on December 26, 2016 at 16:34 Board Certified Radiologist. This report was verified electronically.
--- NOTE | 2016-12-30 08:01 | MD ---
cc: DAMIAN ROSE MD ADMISSION DATE: 12/21/2016 DISCHARGE DATE: 12/26/2016 DISPOSITION Okay to discharge patient home. CONDITION AT THE TIME OF DISCHARGE Satisfactory. ACTIVITY As tolerated. DIET Cardiac diet ALLERGIES No known drug allergies. DISCHARGE MEDICATIONS Protonix 40 mg p.o. daily. FOLLOWUP The patient was advised to follow up with PCP and Neurology within a week. 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 Abnormal SPARE PERSON CSF analysis last time. Does not rule out MS. The patient was started on Solu-Medrol 250 mg IV q.6 hours during the hospital stay and then discontinued. Neurology, Dr. Reza, saw the patient, wants a repeat MRI of the brain which we did. Lyme titer, ALCIRA, PCR. Lab data was pending. ALCIRA was negative. The patient had mild hyperchloremia. Glucose was 123. The patient also had a total protein of 6.1 which was low and albumin 3.3 - low. The patient also had leukocytosis secondary to steroid therapy. The patient remained stable. The patient's MRI brain final one shows stable appearance of the white matter, abnormalities periventricular and central track and in bilateral optic nerve, then when compared to 12/21/2016, no acute finding. The patient had MRI done of the brain on 12/21/2016, shows stable bilateral periventricular white matter disease as above compared with January of 2016. Differential diagnosis previously included acute disseminated encephalomyelitis, hypoxic insult or other demyelination process. There is no abnormal enhancement post contrast. Thoracic spine MRI done shows no focal cord signal abnormality, no acute fracture or spondylolisthesis, no significant central canal stenosis. No abnormal enhancement post contrast. Small right paracentral disc protrusion at T7-T8 and left paracentral disk protrusion at T8-9 resulting in minimal engorgement on the lateral recess. Cervical spine MRI done shows at C6-C7 there is mild posterior disc bulge without significant canal or foraminal stenosis. Exam otherwise unremarkable. No focal cord or spinal abnormality. No abnormal enhancement post contrast. The patient remained stable. The patient for affect during her hospital stay was given chlorpromazine. The patient discharged in satisfactory condition. The patient was advised to follow up with PCP and Neurology. Further details in the medical record. Damian Rose MD EA/SAVANNAH /6:49 AM /7:48 AM
== END 2016-12-26 17:22 | disposition home or self-care (01) | DRG 99 ==
LOC: PHED 14:29 → PHEDA 15:32 → PH3B 16:21
PROVIDERS: ADMIT Specialist; ATTEND Specialist
DX: G04.00 Acute disseminated encephalitis and encephalomyelitis, unspecified (principal); G35 Multiple sclerosis; E87.8 Other disorders of electrolyte and fluid balance, not elsewhere classified; R20.0 Anesthesia of skin; F41.9 Anxiety disorder, unspecified; R27.0 Ataxia, unspecified; R53.1 Weakness; R42 Dizziness and giddiness; D72.828 Other elevated white blood cell count; T38.0X5A Adverse effect of glucocorticoids and synthetic analogues, initial encounter; Y92.239 Unspecified place in hospital as the place of occurrence of the external cause; R06.6 Hiccough
CPT/HCPCS: 70553; 72156; 72157; 80048; 80053; 82607; 85007; 85025; 85027; 85652; 86038; 87801; 99284; A9579; J2930